=== PATIENT | male | born 1945 | race Caucasian/White ===

== ENCOUNTER 2019-11-19 13:42 | Outpatient (CLI) | payer MEDICARE, MEDICAID, SELFPAY ==
--- NOTE | 2019-11-19 13:53 | MR_ITS ---
WS: [id number] MRI HEAD WITH CONTRAST TECHNIQUE: Sagittal T1, T2 axial, T2 axial FLAIR, axial susceptibility weighted imaging, axial diffus ion weighted images, and coronal T2 images were obtained. Pre and post-T1 axial and post T1 coronal i mages. ADC and FSPGR images. CLINICAL INFORMATION: UNSTEADY GAIT; DIZZINESS COMPARISON: None. FINDINGS: No evidence of restricted diffusion to suggest acute ischemia. Ventricular system and basal cisterns are patent. Mild small vessel changes. Moderate parenchymal volume loss. Chronic lacunar infarct righ t cerebellum. Normal vascular flow voids at the skull base. No extra axial fluid collections. Ethmoid sinusitis. Slight right maxillary sinusitis. Mastoid air cells are well aerated. No hemosiderin on s usceptibly weighted images. No abnormal intracranial enhancement. Normal visualized dural venous sinuses. MR/MR head wo/w con [id number] IMPRESSION: 1. No evidence of restricted diffusion to suggest acute ischemia. 2. Mild small vessel changes with moderate parenchymal volume loss. 3. Chronic lacunar infarct right cerebellum. 4. Ethmoid and right maxillary sinusitis. 5. No hemosiderin on susceptibly weighted images. 6. No abnormal gadolinium enhancement.
== END 2019-11-19 13:43 | disposition home or self-care (01) ==
LOC: RADSHAW 13:49
PROVIDERS: Family Provider Family Medicine; Visit Provider Family Medicine
DX: I63.9 Cerebral infarction, unspecified (principal); R26.81 Unsteadiness on feet; R42 Dizziness and giddiness; J32.8 Other chronic sinusitis
CPT/HCPCS: 70553; A9579

== ENCOUNTER 2019-12-04 13:08 | Emergency (ER) | payer MEDICARE, MEDICAID, SELFPAY ==
[2019-12-04 13:39] VITALS: BP 110/64; PULSE 101; RESP 16; TEMP 36.7; O2SAT 97; BMI 30.5
--- NOTE | 2019-12-04 13:49 | ECG_ITS ---
Measurements Intervals [place] Rate: 90 P: RI: 0 QRS: -49 QRSD: 90 T: 69 QT: 344 QTc: 422 ATRIAL FIBRILLATION POSSIBLE RIGHT VENTRICULAR CONDUCTION DELAY [RSR (QR) IN V1/V2] LEFT ANTERIOR FASCICULAR BLOCK [QRS AXIS <= -45, QR IN I, RS IN II] Compared to ECG 07/09/2019 10:32:51 Left anterior fascicular block now present Left-axis deviation no longer present Electronically Signed On 12-04-2019 20:14:50 EFFICIENCY CLERK by Gee Salmon M.D. [email or web address]
--- NOTE | 2019-12-04 13:49 | XR_ITS ---
WS: [id number] PROCEDURE: XR chest 2V* [id number] CLINICAL INFORMATION: pain COMPARISON: None. FINDINGS: Heart: Normal cardiac silhouette. Aortic calcification. Lungs: Lungs are clear. No consolidation or pleural fluid. No acute pulmonary infiltrates. Bones: Hypertrophic changes thoracic spine. XR/XR chest 2V* [id number] IMPRESSION: No acute chest findings.
[2019-12-04 14:17] LABS: Basophils # 0.1 10^3/uL (0.0-0.1); Basophils % 0.7 %; Eosinophils # 0.3 10^3/uL (0.0-0.8); Eosinophils % 2.8 %; Hematocrit 41.1 % (42.0-52.0); Hemoglobin 13.4 g/dL (11.7-16.6); Lymphocytes # 2.2 10^3/uL (0.8-4.8); Lymphocytes % 20.4 %; Mean Corpuscular HGB Conc 32.6 g/dL (30.0-36.0); Mean Corpuscular Hemoglobin 28.8 pg (28.0-34.0); Mean Corpuscular Volume 88.4 fL (80-94); Mean Platelet Volume 9.8 fL (7.4-10.4); Monocytes # 1.3 10^3/uL (0.2-0.9); Monocytes % 11.7 %; Neutrophils # 6.9 10^3/uL (1.8-7.7); Nucleated Red Blood Cells % 0 %; Platelet Count 282 10^3/cmm (130-400); Red Blood Count 4.65 10^6/uL (4.1-5.3); White Blood Count 10.7 10^3/uL (4.0-10.0)
[2019-12-04 14:29] LABS: Add Urine Microscopic? NO
[2019-12-04 14:31] LABS: Bilirubin Urine 1+ (NEGATIVE); Blood Urine Neg (Negative); Glucose Urine UA Norm (Normal); Ketones Urine Negative (Negative); Leukocyte Esterase Urine Negative (Negative); Nitrate Urine Negative (Negative); Protein Urine Neg (Negative); Specific Gravity, Urine 1.015 (1.005-1.030); Urine Appearance Clear (CLEAR); Urine Color Dark Yellow (Yellow); Urobilinogen Urine 4 mg/dL (Negative); pH Urine 5 (5-7)
[2019-12-04 14:33] LABS: Alanine Aminotransferase 11 U/L (0-41); Albumin Level 4.1 g/dL (3.5-5.2); Alkaline Phosphatase 116 IU/L (40-130); Anion Gap 16.1 (5-19); Aspartate Amino Transferase 23 U/L (0-40); Blood Urea Nitrogen 28 mg/dL (8-23); Calcium 9.9 mg/dL (8.5-10.5); Carbon Dioxide 26 mmol/L (22-29); Chloride 96 mmol/L (98-107); Globulin 4.4 g/dL (1.3-4.6); Glucose 100 mg/dL (74-106); Potassium 4.1 mmol/L (3.5-5.1); Sodium 134 mmol/L (136-145); Total Bilirubin 2.6 mg/dL (0.15-1.2); Total Protein 8.5 g/dL (6.6-8.7)
[2019-12-04 14:34] LABS: Troponin(5th) Baseline 16 ng/mL (0-15)
--- NOTE | 2019-12-04 15:49 | ECG_ITS ---
Measurements Intervals [place] Rate: 83 P: ME: 0 QRS: -45 QRSD: 88 T: 63 QT: 371 QTc: 438 ATRIAL FIBRILLATION LEFT ANTERIOR FASCICULAR BLOCK [QRS AXIS <= -45, QR IN I, RS IN II] SEPTAL MYOCARDIAL INFARCTION , PROBABLY OLD [40+ ms Q WAVE IN V1/V2] Compared to ECG 07/09/2019 10:32:51 Left anterior fascicular block now present Myocardial infarct finding now present Left-axis deviation no longer present Electronically Signed On 12-04-2019 20:18:17 HEATING MECHANIC by Gee Salmon M.D. [id number]
[2019-12-04 17:05] LABS: Troponin 5 2HR 14.94 ng/mL (0-15)
[2019-12-04 17:11] LABS: Troponin 5 2HR Delta -1.06 ABS# (0-10)
--- NOTE | 2019-12-04 17:43 | ED_ITS ---
Entered by Sondra Bustillos, acting as scribe for Whit Doyle MD Dec 04, 2019 13:08 HPI - Dizziness General: Chief Complaint: Dizziness Stated Complaint: DIZZY Time Seen by Provider: 12/04/19 17:50 Source: patient and family Mode of arrival: ambulatory Limitations: no limitations History of Present Illness: HPI Narrative: 74 yo male presents with dizziness. pt states this started today. pt stated that he had a stroke 3 weeks ago and every day since he had it he felt drunk. no acute signs of stroke on MRI 2019. pt denies any other symptoms at this time. MD elicited complaint: dizziness Onset (ago): day(s) (today) Timing: gradual onset Severity: mild Description: lightheadedness Context: other Associated symptoms: Denies chest pain, chills, headache(s), nausea or vomiting Review of Systems Const: Denies: fever, chills, body aches or change in appetite Eyes: Denies: blurry vision or eye discomfort ENMT: Denies: throat pain or dental pain Card: Denies: chest pain Resp: Denies: shortness of breath GI: Denies: abdominal pain, nausea, vomiting or diarrhea : Denies: painful urination Musc: Denies: neck pain or back pain Skin/Breast: Denies: rash Neuro: Denies: headache Psych: Denies: depression Jaime/Lymph: Denies: easy bruising All/Imm: Denies: hives PFSH ED PFSH: Statuses (acute, chronic, etc) shown below reflect problem list status as previously entered and may not be historically accurate Social History Smoking and tobacco status: former smoker Physical Exam Const: COMMON NORMALS: no apparent distress and healthy appearing HENMT: COMMON NORMALS: normocephalic and head/scalp atraumatic HEAD & SCALP: normocephalic and atraumatic Eye: COMMON NORMALS: PERRL and EOMs intact bilaterally PUPIL: Yes PERRL Neck/C-Spine: COMMON NORMALS: full ROM and supple Chest: COMMONS NORMALS: inspection of chest normal and palpation of chest normal Resp: COMMON NORMALS: normal respiratory effort, no retractions, no use of accessory muscles and clear to auscultation bilaterally AUSCULTATION: clear to auscultation bilaterally Cardio: COMMON NORMALS: regular rate, regular rhythm and no murmurs RATE: regular rate RHYTHM: regular rhythm GI: COMMON NORMALS: normal to inspection, nondistended, normoactive bowel sounds, soft to palpation, non-tender and no masses PALPATION: Yes soft Extremity: COMMON NORMALS: normal to inspection and full ROM Psych: COMMON NORMALS: mental status grossly normal, thought process normal and cooperative THOUGHT PROCESS: normal thought process Skin: COMMON NORMALS: no rashes or lesions noted and no wounds GENERAL SKIN EXAM: no rashes or lesions noted Course Vital Signs: Vital signs: Vital Signs Temperature 98.0 F 12/04/19 13:39 Pulse Rate 74 12/04/19 20:32 Respiratory Rate 18 12/04/19 20:32 Blood Pressure 131/79 12/04/19 20:32 Pulse Oximetry 99 12/04/19 20:32 MDM - Dizziness MDM Narrative: Medical decision making narrative: Patient presents here with lightheadedness likely from dehydration. He feels much improved here after IV fluids. CT head shows no acute findings. Patient has no signs of a stroke here. He is able to ambulate without any problems. Patient is stable for discharge and return if worsening. Lab Data: Labs: Lab Results 12/04/19 12/04/19 12/04/19 Range/Units 14:10 14:10 14:10 WBC 10.7 H (4.0-10.0) 10^3/ uL RBC 4.65 (4.1-5.3) 10^6/u L Hgb 13.4 (11.7-16.6) g/dL Hct 41.1 L (42.0-52.0) % MCV 88.4 (80-94) fL MCH 28.8 (28.0-34.0) pg MCHC 32.6 (30.0-36.0) g/dL RDW 14.0 (12.1-15.1) % Plt Count 282 (130-400) 10^3/c mm MPV 9.8 (7.4-10.4) fL Neut % (Auto) 64.0 % Lymph % (Auto) 20.4 % [place] % (Auto) 11.7 % Eos % (Auto) 2.8 % Baso % (Auto) 0.7 % Neut # (Auto) 6.9 (1.8-7.7) 10^3/u L Lymph # (Auto) 2.2 (0.8-4.8) 10^3/u L [place] # (Auto) 1.3 H (0.2-0.9) 10^3/u L Eos # (Auto) 0.3 (0.0-0.8) 10^3/u L Baso # (Auto) 0.1 (0.0-0.1) 10^3/u L Nucleated RBC % (a uto) 0 % Nucleated RBCs # 0.0 /100WBC Sodium 134 L (136-145) mmol/L Potassium 4.1 (3.5-5.1) mmol/L Chloride 96 L (98-107) mmol/L Carbon Dioxide 26 (22-29) mmol/L Anion Gap 16.1 (5-19) BUN 28 H (8-23) mg/dL Creatinine 1.6 H (0.7-1.2) mg/dL Glucose 100 (74-106) mg/dL Calcium 9.9 (8.5-10.5) mg/dL Total Bilirubin 2.6 H (0.15-1.2) mg/dL AST 23 (0-40) U/L ALT 11 (0-41) U/L Alkaline Phosphata se 116 (40-130) IU/L Troponin T Baselin e 16 H (0-15) ng/mL Troponin T 120 Min [place] (0-15) ng/mL Delta Troponin T (0-10) ABS# Total Protein 8.5 (6.6-8.7) g/dL Albumin 4.1 (3.5-5.2) g/dL Globulin 4.4 (1.3-4.6) g/dL Urine Color (Yellow) Urine Appearance (CLEAR) Urine pH (5-7) Ur Specific Gravit y (1.005-1.030) Urine Protein (Negative) Urine Glucose (UA) (Normal) Urine Ketones (Negative) Urine Occult Blood (Negative) Urine Nitrate (Negative) Urine Bilirubin (NEGATIVE) Urine Urobilinogen (Negative) mg/dL Ur Leukocyte Genet ase (Negative) 12/04/19 12/04/19 Range/Units 14:11 16:40 WBC (4.0-10.0) 10^3/ uL RBC (4.1-5.3) 10^6/u L Hgb (11.7-16.6) g/dL Hct (42.0-52.0) % MCV (80-94) fL MCH (28.0-34.0) pg MCHC (30.0-36.0) g/dL RDW (12.1-15.1) % Plt Count (130-400) 10^3/c mm MPV (7.4-10.4) fL Neut % (Auto) % Lymph % (Auto) % [place] % (Auto) % Eos % (Auto) % Baso % (Auto) % Neut # (Auto) (1.8-7.7) 10^3/u L Lymph # (Auto) (0.8-4.8) 10^3/u L [place] # (Auto) (0.2-0.9) 10^3/u L Eos # (Auto) (0.0-0.8) 10^3/u L Baso # (Auto) (0.0-0.1) 10^3/u L Nucleated RBC % (a uto) % Nucleated RBCs # /100WBC Sodium (136-145) mmol/L Potassium (3.5-5.1) mmol/L Chloride (98-107) mmol/L Carbon Dioxide (22-29) mmol/L Anion Gap (5-19) BUN (8-23) mg/dL Creatinine (0.7-1.2) mg/dL Glucose (74-106) mg/dL Calcium (8.5-10.5) mg/dL Total Bilirubin (0.15-1.2) mg/dL AST (0-40) U/L ALT (0-41) U/L Alkaline Phosphata se (40-130) IU/L Troponin T Baselin e (0-15) ng/mL Troponin T 120 Min [place] 14.94 (0-15) ng/mL Delta Troponin T -1.06 L (0-10) ABS# Total Protein (6.6-8.7) g/dL Albumin (3.5-5.2) g/dL Globulin (1.3-4.6) g/dL Urine Color Dark yellow (Yellow) Urine Appearance Clear (CLEAR) Urine pH 5 (5-7) Ur Specific Gravit y 1.015 (1.005-1.030) Urine Protein Neg (Negative) Urine Glucose (UA) Norm (Normal) Urine Ketones Negative (Negative) Urine Occult Blood Neg (Negative) Urine Nitrate Negative (Negative) Urine Bilirubin 1+ H (NEGATIVE) Urine Urobilinogen 4 H (Negative) mg/dL Ur Leukocyte Genet ase Negative (Negative) Imaging Data^: CT Head: Radiologist's impression: Signed Patient: Tien Galan Unit #: [id number] : 1945 Age/Sex: 74 / M ADM Date: 12/04/19 Loc: ER Room/Bed: Attending Dr: Ordering Provider/Ordering MD: Whit Doyle MD Date of Service: 12/04/19 Procedure(s): CT head wo con* [id number] Accession Number(s): [id number] Report Number: [id number] PROCEDURE INFORMATION: Exam: CT Head Without Contrast Exam date and time: 12/04/2019 6:23 PM Age: 74 years old Clinical indication: Dizziness; Additional info: Dizzy TECHNIQUE: Imaging protocol: Computed tomography of the head without contrast. Total DLP: 725.17 mGy-cm Radiation optimization: All CT scans at this facility use at least one of these dose optimization techniques: automated exposure control; mA and/or kV adjustment per patient size (includes targeted exams where dose is matched to clinical indication); or iterative reconstruction. COMPARISON: [place] [id number] 04/08/2014 10:38 AM FINDINGS: Brain: There is mild cortical atrophy. Midline shift: There is no shift of midline structures. Ventricles: Normal. No ventriculomegaly. Bones/joints: Unremarkable. No acute fracture. Sinuses: There is fluid in the frontal sinuses, mucosal thickening and fluid in the bilateral maxillary sinuses and opacification of about half of the ethmoid air cells in keeping with sinusitis. Mastoid air cells: Visualized mastoid air cells are well aerated. Soft tissues: Unremarkable. CT/CT head wo con* [id number] IMPRESSION: Sinusitis. No acute intracranial finding. EKG Data^: EKG 1: EKG interpretation date: 12/04/19 EKG interpretation time: 19:17 Interpretation: afib hr [address] or t wave abnormalities qrs 96 [id number] Discharge Plan Discharge Patient Disposition: Home, Self-Care Clinical Impression: Dizziness Condition: Stable Discharge Orders: Discharge Order (Routine); Ordered 12/04/19 Ordered By: Whit Doyle Referrals: Damaso Bolivar MD [Family Provider] - 4-7 days Discharge Diet: Advance as tolerated Discharge Activity: Resume usual activity Patient Instructions: Dizziness (ED) Discharge Date/Time: 12/04/19 20:33 Coding Level of Care Code ED Trimming Cutter Machine for Chg Fwd Exam Problem Focused The documentation recorded by the Apollo selby Bridget Annette, accurately reflects the service I personally performed and the decisions made by Vivek agr Korby, MD Dec 04, 2019 13:08
--- NOTE | 2019-12-04 18:02 | CTR_ITS ---
PROCEDURE INFORMATION: Exam: CT Head Without Contrast Exam date and time: 12/04/2019 6:23 PM Age: 74 years old Clinical indication: Dizziness; Additional info: Dizzy TECHNIQUE: Imaging protocol: Computed tomography of the head without contrast. Total DLP: 725.17 mGy-cm Radiation optimization: All CT scans at this facility use at least one of these dose optimization techniques: automated exposure control; mA and/or kV adjustment per patient size (includes targeted exams where dose is matched to clinical indication); or iterative reconstruction. COMPARISON: [place] [id number] 04/08/2014 10:38 AM FINDINGS: Brain: There is mild cortical atrophy. Midline shift: There is no shift of midline structures. Ventricles: Normal. No ventriculomegaly. Bones/joints: Unremarkable. No acute fracture. Sinuses: There is fluid in the frontal sinuses, mucosal thickening and fluid in the bilateral maxillary sinuses and opacification of about half of the ethmoid air cells in keeping with sinusitis. Mastoid air cells: Visualized mastoid air cells are well aerated. Soft tissues: Unremarkable. CT/CT head wo con* [id number] IMPRESSION: Sinusitis. No acute intracranial finding. Radiation Dose CTDIVOL = (mGy): DLP = 725.17 (mGy-cm)
--- NOTE | 2019-12-04 18:02 | XR_ITS ---
WS: [id number] CHEST XRAY TECHNIQUE: Portable chest. CLINICAL INFORMATION: dizzy COMPARISON: December 04, 2019 FINDINGS: Heart: Normal cardiac silhouette. Aortic calcification. Lungs: Lungs are clear. No consolidation or pleural effusion. Mild chronic emphysematous changes. Bones: Hypertrophic changes thoracic spine. XR/XR chest 1V portable [id number] IMPRESSION: No acute chest findings
[2019-12-04] MEDS: sodium chloride 0.9% 1,000 ML 999 ML IV (18:31)
[2019-12-04 19:32] VITALS: BP 125/86; PULSE 67; RESP 18; O2SAT 98
--- NOTE | 2019-12-04 19:49 | ECG_ITS ---
Measurements Intervals [place] Rate: 70 P: SD: 0 QRS: -23 QRSD: 96 T: 28 QT: 404 QTc: 439 ATRIAL FIBRILLATION BORDERLINE LEFT AXIS DEVIATION [QRS AXIS < -20] ABNORMAL RHYTHM ECG Compared to ECG 12/04/2019 16:21:19 Left anterior fascicular block no longer present Myocardial infarct finding no longer present Electronically Signed On 12-05-2019 9:29:54 CONDENSER OPERATOR by Arnav Merlos M.D. [id number]
[2019-12-04 20:32] VITALS: BP 131/79; PULSE 74; RESP 18; O2SAT 99
[2019-12-04 20:46] LABS: Troponin 5 6HR 12.83 ng/L (0-15)
[2019-12-04 20:56] LABS: Troponin 5 6HR Delta -3.17 ng/L (0-12)
== END 2019-12-04 20:33 | disposition home or self-care (01) ==
PROVIDERS: Emergency Medicine; Registered Nurse; Emergency Provider Emergency Medicine; Family Provider Family Medicine
DX: R42 Dizziness and giddiness (principal); Z86.73 Personal history of transient ischemic attack (TIA), and cerebral infarction without residual deficits; Z87.891 Personal history of nicotine dependence
CPT/HCPCS: 36415; 70450; 71045; 71046; 80053; 81003; 84484; 85025; 93005; 96360; 99283; 99284; A9270; J7030

== ENCOUNTER 2019-12-12 14:11 | Outpatient (CLI) | payer MEDICARE, MEDICAID, SELFPAY ==
--- NOTE | 2019-12-12 14:14 | USCV_ITS ---
Angelia Tien Age: 74 Gender: M : 1945 Exam Date: 12/12/2019 14:54 Ordering Phys: Damaso Bolivar MD Technologist: Yashira Bland [place] [facility] [place]: CVA Risk Factors: Previous Vascular Surgery: Right Brachial BP: / Left Brachial BP: / Right Left Velocity (cm/s) Spectral Plaque Velocity (cm/s) Spectral Plaque Syst/Diast Broadening Syst/Diast Broadening 63.90/ 11.00 Prox CCA 63.40 / 21.80 63.90/ 22.10 Mid CCA 67.70 / 26.00 54.00/ 18.70 Distal CCA 42.90 / 14.50 31.30/ 10.00 Prox ICA 52.60 / 15.60 36.60/ 16.50 Mid ICA 26.70 / 14.00 44.30/ 20.70 Distal ICA 38.20 / 13.60 57.90 ECA 43.50 0.69 ICA/CCA 0.78 Antegrade Vertebral Antegrade 66.00/ 24.00 cm/s 28.40/ 13.80 cm/s Tri Subclavian Tri 51.40 69.30 FINDINGS Comparison: none available. No significant elevation of systolic or diastolic velocities. Mild bilateral scattered calcified plaque hroughout the common carotid arteries and extending through the bifurcation. CONCLUSIONS Bilateral ICA stenosis less than 50%. Mild carotid atherosclerosis. Dr. Liv Jarquin DO (Electronically Signed) Final Date: 12 December 2019 16:22 S
--- NOTE | 2019-12-12 14:14 | USCV_ITS ---
Tien Galan Age: 74 Gender: M : 1945 Exam Date: 12/12/2019 14:39 Ordering Phys: Damaso Bolivar MD Technologist: Inez Barnard Exam Location: [facility] – [place] Indication: CVA BP: / HR: 75 Rhythm: Technical Quality: Adequate MEASUREMENTS (Male / Female) Normal Values 2D ECHO LV Diastolic Diameter PLAX 4.7 cm 4.2 - 5.9 / 3.9 - 5.3 cm LV Systolic Diameter PLAX 3.2 cm IVS Diastolic Thickness 1.1 cm 0.6 - 1.0 / 0.6 - 0.9 cm IVS Systolic Thickness 1.8 cm LVPW Diastolic Thickness 1.2 cm 0.6 - 1.0 / 0.6 - 0.9 cm LVPW Systolic Thickness 1.3 cm LVOT Diameter 2.1 cm LV Ejection Fraction 2D Teich 59.9 % LV Ejection Fraction MOD 2C 37.5 % LV Ejection Fraction 2C AL 37.4 % LA Diameter 3.7 cm LA Width 3.7 cm LA Height 5.7 cm RA Width 4.3 cm RA Height 5.5 cm Aorta at Sinotubular Diameter 3.2 cm M-MODE LV Diastolic Diameter MM 4.7 cm 4.2 - 5.9 / 3.9 - 5.3 cm LV Systolic Diameter MM 3.6 cm LV Ejection Fraction MM Teich 47.0 % IVS Diastolic Thickness MM 1.3 cm 0.6 - 1.0 / 0.6 - 0.9 cm IVS Systolic Thickness MM 1.3 cm LVPW Diastolic Thickness MM 1.1 cm 0.6 - 1.0 / 0.6 - 0.9 cm LVPW Systolic Thickness MM 1.3 cm RV Diastolic Diameter MM 1.6 cm Aortic Annulus Diameter 4.1 cm LA Ao Ratio MM 0.9 MV E Point Septal Separation 0.8 cm DOPPLER AV Peak Velocity 105.0 cm/s LVOT Peak Velocity 84.0 cm/s AV Area Cont Eq vti 2.8 cm squared AV Area Cont Eq pk 2.7 cm squared MV Area PHT 5.0 cm squared MV E' Velocity 11.0 cm/s Mitral E to MV E' Ratio 9.2 Mitral E to LV E' Lateral Ratio 8.2 Mitral E to LV E' Septal Ratio 10.5 TR Peak Velocity 232.6 cm/s TR Peak Gradient 21.6 mmHg TR Mean Velocity 179.7 cm/s TR Mean Gradient 13.9 mmHg TR Velocity Time Integral 70.4 cm Right Atrial Pressure 3.0 mmHg Pulmonary Artery Systolic Pressu 24.6 mmHg PV Peak Velocity 43.0 cm/s RV Acceleration Time 0.2 s RV Ejection Time 0.3 s RV AcT/ET 0.5 FINDINGS Left Ventricle Normal left ventricular cavity size. Normal left ventricular systolic function. No regional wall motion abnormalities. Left ventricular ejection fraction is estimated at 55%. In the presence of atrial fibrillation diastolic function cannot be assessed accurately. Right Ventricle Moderately increased right ventricular size. Right Atrium Moderately increased right atrial size. Left Atrium Moderately increased left atrial size. Mitral Valve Structurally normal mitral valve without significant stenosis or prolapse. There is no mitral regurgitation. Aortic Valve Moderate aortic valve calcification. No aortic valve stenosis. Mild aortic valve regurgitation. Tricuspid Valve Thickened tricuspid valve. Moderate tricuspid valve regurgitation. Pulmonic Valve Structurally normal pulmonic valve without significant stenosis. There is no pulmonic regurgitation. Pericardium Normal pericardium without effusion. Aorta Normal ascending aorta dimension. CONCLUSIONS 1-Normal left ventricular cavity size. Normal left ventricular systolic function. No regional wall motion abnormalities. Left ventricular ejection fraction is estimated at 55%. In the presence of atrial fibrillation diastolic function cannot be assessed accurately. 2-Moderate aortic valve calcification. No aortic valve stenosis. Mild aortic valve regurgitation. 3-Thickened tricuspid valve. Moderate tricuspid valve regurgitation. 4-There is no pericardial effusion. 5-Pulmonary artery systolic pressure is within normal limits. 6-No significant change since the prior echocardiogram study of 04/22/2016. Gee Salmon MD (Electronically Signed) Final Date: 12 December 2019 19:44 S
== END 2019-12-12 14:12 | disposition home or self-care (01) ==
LOC: US 14:12
PROVIDERS: Family Provider Family Medicine; Visit Provider Family Medicine
DX: I63.9 Cerebral infarction, unspecified (principal); R42 Dizziness and giddiness; I07.9 Rheumatic tricuspid valve disease, unspecified; I07.1 Rheumatic tricuspid insufficiency; I70.0 Atherosclerosis of aorta; I35.1 Nonrheumatic aortic (valve) insufficiency; I65.23 Occlusion and stenosis of bilateral carotid arteries; I65.29 Occlusion and stenosis of unspecified carotid artery
CPT/HCPCS: 93306; 93880

== ENCOUNTER 2020-02-27 15:31 | Outpatient (CLI) | payer MEDICARE, MEDICAID, SELFPAY ==
--- NOTE | 2020-02-27 15:43 | US_ITS ---
WS: [id number] RENAL ULTRASOUND HISTORY: CKD COMPARISON: 06/19/2019 TECHNIQUE: 2-D and color Doppler imaging of the kidney submitted. Right kidney: 9.8 cm x 4.9 cm x 6.7 cm. Kidney is low normal size. No obstruction or mass. Left kidney: 9.3 cm x 5.1 cm x 4.9 cm. LEFT kidney is poorly visualized. There is a very slight thickening of the cortex over the mid to low er kidney. Slight bulging of the cortex measuring 2.6 x 1.6 x 2.4 cm. No hydronephrosis. Aorta: Normal. Urinary Bladder: Nondistended. US/US renal BI* [id number] IMPRESSION: 1. Mild renal atrophy. No obstruction. 2. Bulging of the LEFT renal cortex. Renal cell neoplasm is not excluded. Drom edary hump versus mass. For further evaluation three-phase renal mass CT can be performed.
== END 2020-02-27 15:32 | disposition home or self-care (01) ==
LOC: RAD 15:38
PROVIDERS: Family Provider Family Medicine; PCP Family Medicine; Visit Provider Registered Nurse
DX: N18.3 Chronic kidney disease, stage 3 (moderate) (principal); N26.1 Atrophy of kidney (terminal); N28.89 Other specified disorders of kidney and ureter
CPT/HCPCS: 76770

== ENCOUNTER 2020-03-12 11:00 | Outpatient (CLI) | payer MEDICARE, MEDICAID, SELFPAY ==
--- NOTE | 2020-03-12 11:31 | CT_ITS ---
WS: [id number] CT ABDOMEN PELVIS TECHNIQUE: Noncontrast CT of the abdomen and pelvis with coronal and sagittal reformatted images. CLINICAL INFORMATION: LEFT RENAL MASS, STAGE 3 KIDNEY DISEASE COMPARISON: CT April 19, 2017 and ultrasound February 27, 2020 DLP: 1105.[address] scans at [facility] use at least one of these dose optimization techniques: automat ed exposure control; mA and/or kV adjustment per patient size (includes targeted exams where dose is matched to clinical indication); or iterative reconstruction. FINDINGS: Prior postoperative changes cholecystectomy and appendectomy. Stable mild intrahepatic biliary ductal dilatation physiologic postcholecystectomy. Liver is otherwise normal in appearance. Normal noncontr ast spleen. Normal GE junction. Adrenal glands are normal. Bilateral renal cortical atrophy. No hydro nephrosis. Ureters are decompressed and normal in appearance. No obstructing renal or ureteral calcul i. Tiny exophytic lesion left anterior kidney measuring 7 mm unchanged since 2017. Otherwise no visualiz ed mass or lesion to correspond to the recent ultrasound findings. No evidence of small or large bowel obstruction. Normal colon. Ventral abdominal wall hernia repair. No evidence of recurrent hernia. Lung bases are well aerated. Aortic calcification. No periaortic or pelvic lymphadenopathy. Mild spon dylitic changes lumbar spine.Prominent slightly nodular prostate measuring 4.0 x 4.3 cm recommend cor relation PSA CT/CT abdomen pelvis wo con [id number] IMPRESSION: 1. No definite corresponding mass or lesion on this noncontrast examination le ft kidney to correspond to the ultrasound findings. 2. Tiny exophytic cortical lesion left anterior kidney likely represents a tin y cyst but too small characterize. This is unchanged since 2017. 3. No other significant changes from previous. 4. No hydronephrosis. Bilateral renal cortical atrophy. 5. Prior cholecystectomy. 6. Prior ventral abdominal wall hernia repair. 7. Prominent slightly nodular prostate measuring 4.0 x 4.3 cm recommend correl ation PSA
== END 2020-03-12 11:01 | disposition home or self-care (01) ==
LOC: RADWPI 11:04
PROVIDERS: Family Provider Family Medicine; PCP Family Medicine; Visit Provider Internal Medicine Nephrology
DX: N28.89 Other specified disorders of kidney and ureter (principal); N18.3 Chronic kidney disease, stage 3 (moderate); N28.9 Disorder of kidney and ureter, unspecified; N26.1 Atrophy of kidney (terminal); N40.2 Nodular prostate without lower urinary tract symptoms
CPT/HCPCS: 74176

== ENCOUNTER 2020-06-20 14:52 | Outpatient (CLI) | payer MEDICARE, MEDICAID, SELFPAY ==
--- NOTE | 2020-06-20 14:59 | MR_ITS ---
WS: [id number] EXAM: MR head wo/w con [id number] DATE OF EXAMINATION: 06/20/2020, 1538 hours COMPARISON: MRI of the brain with and without contrast from 11/19/2019 HISTORY: 75 years old with trigeminal neuralgia TECHNIQUE: Sagittal T1; axial T2, FLAIR, diffusion imaging, gradient echo imaging, ADC mapping. 17 mL of ProHanc e was used for the contrast portion of the examination. 3 plane postcontrast T1 sequence obtained. FINDINGS: Skull base is normal in appearance. Pituitary gland is normal in size. Brain stem, cerebellum and cer ebral hemispheres show normal development. Generalized changes of age-related atrophy are demonstrate d. Flow void is seen in the major vessels at the level of the skull base. Minimal T2 signal changes i n the periventricular white matter and a few areas of scattered white matter signal change within the deeper white matter in the supraventricular frontal lobes and posterior parietal lobes. No abnormal signal on diffusion imaging or ADC mapping. No roman artifact on gradient echo sequencing. No finding s of hemorrhage, hydrocephalus, mass, mass effect or abnormal extra-axial fluid collection is seen. C hronic sinusitis changes seen in the ethmoid sinuses. Definitely better than on a December 04, 2019 CT exam. No thin slice imaging through the area of the brainstem and the trigeminal nerve was obtained. Patien t needs to be recalled for additional multiplanar axial, sagittal and coronal steady-state free prece ssion imaging heavily T2-weighted to evaluate the trigeminal nerve and surrounding structure anatomy. On the coronal data set it appears that the superior right cerebellar artery may actually contact th e upper cranial portion of the right trigeminal nerve. Again this is poorly seen. Further imaging rec ommended for clarification of anatomy and positions of structures in relation to the trigeminal nerve . Postcontrast imaging shows no evidence of abnormal enhancement. MR/MR head wo/w con [id number] IMPRESSION: Changes of atrophy and some slight chronic small vessel white matter microangio pathic changes. No acute intracranial process. No thin slice imaging acquisition through the area of the brainstem and trigemi nal nerve obtained. Patient needs to be recalled for multiplanar axial, sagitta l and coronal steady-state free precession imaging heavily T2-weighted to evalu ate the trigeminal nerve and surrounding structures. Suspicion that on the prabhu nal sequencing the right superior cerebral artery is in direct contact with the cranial portion of the right trigeminal nerve.
== END 2020-06-20 14:53 | disposition home or self-care (01) ==
LOC: RADSHAW 14:57
PROVIDERS: PCP Family Medicine; Visit Provider Family Medicine
DX: G50.0 Trigeminal neuralgia (principal)
CPT/HCPCS: 70553; 82565; A9579

== ENCOUNTER 2020-07-16 13:02 | Outpatient (CLI) | payer MEDICARE, MEDICAID, SELFPAY ==
--- NOTE | 2020-07-16 | MR_ITS ---
WS: [id number] MRI BRAIN WITH AND WITHOUT CONTRAST HISTORY: TRIGEMINAL NEURALGIA COMPARISON: 06/20/2020, 11/19/2019 TECHNIQUE: Multiplanar imaging performed through the brain with Prohance 17 ml's IV. No evidence for an acute infarct. Mild chronic microvascular ischemic changes are stable in the periv entricular white matter. No interval infarct. There is no displacement of the trigeminal nerve or abn ormal enhancement. Patient describes left-sided facial pain for several months. The LEFT and RIGHT coon perior cerebellar arteries are closely associated with the trigeminal or but no displacement. Small f at planes are still evident. There is no enhancing mass. No susceptibility artifacts or prior lacunar infarcts. Ventricles and extra-axial spaces are normal. Clivus and pituitary gland are normal. Visualized posterior fossa and brainstem are also normal. 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 Postcontrast images are negative for masses or vascular malformations. Dural venous sinuses are normal. Paranasal sinuses: Small mucous retention cyst in the floor the maxillary sinus. Mild ethmoid air bessie l disease. Mastoid air cells: Normal. Calvarium and scalp: Normal. MR/MR head wo/w con [id number] IMPRESSION: 1. No intracranial mass. 2. No significant enhancement involving the facial nerves. No displacement by the cerebellar arteries. 3. Mild chronic microvascular ischemic disease is stable.
== END 2020-07-16 13:03 | disposition home or self-care (01) ==
LOC: RADSHAW 13:03
PROVIDERS: PCP Family Medicine; Visit Provider Family Medicine
DX: G50.0 Trigeminal neuralgia (principal); I67.82 Cerebral ischemia
CPT/HCPCS: 70553; A9579

== ENCOUNTER 2020-10-15 20:00 | Outpatient (CLI) | payer MEDICARE, MEDICAID, SELFPAY | END 2020-10-15 20:01 | disposition home or self-care (01) | LOC: SLEEP 10-16 09:39 | PROVIDERS: PCP Family Medicine; Visit Provider Family Medicine | DX: G47.10 Hypersomnia, unspecified (principal); G47.33 Obstructive sleep apnea (adult) (pediatric) | CPT/HCPCS: 95810 ==

== ENCOUNTER 2020-12-09 20:00 | Outpatient (CLI) | payer MEDICARE, MEDICAID, SELFPAY | END 2020-12-09 20:01 | disposition home or self-care (01) | LOC: SLEEP 12-10 09:42 | PROVIDERS: PCP Family Medicine; Visit Provider Family Medicine | DX: G47.33 Obstructive sleep apnea (adult) (pediatric) (principal) | CPT/HCPCS: 95811 ==

== ENCOUNTER → 2022-01-19 13:50 | Outpatient (BNVA) | payer MEDICARE, MEDICAID, SELFPAY | PROVIDERS: PCP Family Medicine; Referring Provider Family Medicine; Visit Provider Specialist | DX: R26.89 Other abnormalities of gait and mobility (principal); G25.0 Essential tremor; R42 Dizziness and giddiness; F41.9 Anxiety disorder, unspecified; I95.1 Orthostatic hypotension; G31.84 Mild cognitive impairment of uncertain or unknown etiology; F17.200 Nicotine dependence, unspecified, uncomplicated | CPT/HCPCS: 99204; 99205 ==

== ENCOUNTER 2022-01-29 06:00 | Outpatient (RCR) | payer MEDICARE, MEDICAID, SELFPAY | END 2022-02-27 23:59 | disposition home or self-care (01) | LOC: APT 06:00 | PROVIDERS: PCP Family Medicine; Referring Provider Specialist; Visit Provider Specialist | DX: R26.81 Unsteadiness on feet (principal) | CPT/HCPCS: 97110; 97112; 97163 ==

== ENCOUNTER 2022-04-29 16:30 | Outpatient (CLI) | payer MEDICARE, MEDICAID, SELFPAY ==
--- NOTE | 2022-04-29 | USR_ITS ---
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 COMPARISON: US Testicular [id number] 09/13/2019 3:43 PM FINDINGS: Right testicle: Status post right orchiectomy. No recurrent mass in the right hemiscrotum. Left testicle: Left testis measures 3.4 x 1.3 x 3.0 cm. The testis is normal in echotexture. No focal testicular lesion is demonstrated. Appropriate blood flow documented by Doppler. Epididymides: Left epididymis demonstrates a 1.1 cm septated cyst in the epididymal head. The body and tail of the left epididymis is heterogeneous without focal solid mass. Scrotum: There is a small hydrocele present. No varicocele noted on either side. US/US scrotum [id number] IMPRESSION: 1. Status post right orchiectomy. The empty right hemiscrotum is unremarkable. 2. Left testis is unremarkable. 3. There is a 1.1 cm septated cyst versus small spermatocele in the left epididymal head. 4. There is a small hydrocele present.
== END 2022-04-29 16:31 | disposition home or self-care (01) ==
LOC: RAD 16:31
PROVIDERS: PCP Family Medicine; Visit Provider Family Medicine
DX: N50.9 Disorder of male genital organs, unspecified (principal)
CPT/HCPCS: 76870

== ENCOUNTER → 2022-04-30 11:01 | Outpatient (BNVA) | payer MEDICARE, MEDICAID, SELFPAY | PROVIDERS: PCP Family Medicine; Visit Provider Urology | DX: N50.812 Left testicular pain (principal); Z85.47 Personal history of malignant neoplasm of testis; Z90.79 Acquired absence of other genital organ(s) | CPT/HCPCS: 81003; 99213 ==

== ENCOUNTER → 2022-11-18 11:59 | Outpatient (BNVA) | payer MEDICARE, MEDICAID, SELFPAY | PROVIDERS: PCP Family Medicine; Visit Provider Family Medicine | DX: E03.9 Hypothyroidism, unspecified (principal); E78.5 Hyperlipidemia, unspecified; Z13.220 Encounter for screening for lipoid disorders; Z51.81 Encounter for therapeutic drug level monitoring | CPT/HCPCS: 80053; 80061; 84439; 84443; 85025 ==

== ENCOUNTER → 2022-12-27 14:16 | Outpatient (BNVA) | payer MEDICARE, MEDICAID, SELFPAY | PROVIDERS: PCP Family Medicine; Visit Provider Internal Medicine Cardiovascular Disease | DX: I48.20 Chronic atrial fibrillation, unspecified (principal); Z79.01 Long term (current) use of anticoagulants; R07.9 Chest pain, unspecified; I10 Essential (primary) hypertension; Z87.891 Personal history of nicotine dependence | CPT/HCPCS: 93005; 99204 ==

== ENCOUNTER 2023-01-27 13:37 | Outpatient (CLI) | payer MEDICARE, MEDICAID, SELFPAY ==
--- NOTE | 2023-01-27 14:00 | USCV_ITS ---
Tien Galan Age: 77 Gender: M : 1945 Exam Date: 01/27/2023 14:34 Ordering Phys: Kristal Odom MD ([email or web address]) Technologist: Exam Location: [facility] – [place] Indication: sob chest pain BP: 130 / 82 HR: 75 Rhythm: Sinus Technical Quality: Adequate MEASUREMENTS (Male / Female) Normal Values 2D ECHO LV Diastolic Diameter PLAX 4.5 cm 4.2 - 5.9 / 3.9 - 5.3 cm LV Systolic Diameter PLAX 2.9 cm IVS Diastolic Thickness 1.3 cm 0.6 - 1.0 / 0.6 - 0.9 cm IVS Systolic Thickness 1.8 cm LVPW Diastolic Thickness 1.3 cm 0.6 - 1.0 / 0.6 - 0.9 cm LVPW Systolic Thickness 1.7 cm LVOT Diameter 2.0 cm LV Ejection Fraction 2D Teich 66.7 % LA Diameter 4.6 cm Aorta at Sinotubular Diameter 3.1 cm IVC Diameter 1.3 cm M-MODE Aortic Annulus Diameter 3.9 cm LA Ao Ratio MM 1.4 MV E Point Septal Separation 1.2 cm DOPPLER AV Peak Velocity 136.0 cm/s LVOT Peak Velocity 87.0 cm/s AV Area Cont Eq vti 1.9 cm squared AV Area Cont Eq pk 2.1 cm squared MV Area PHT 5.0 cm squared Mitral E to A Ratio 1.6 MV E' Velocity 88.0 cm/s Mitral E to LV E' Septal Ratio 11.9 TR Peak Velocity 253.3 cm/s TR Peak Gradient 25.7 mmHg TV Peak E Velocity 82.0 cm/s Right Atrial Pressure 3.0 mmHg Pulmonary Artery Systolic Pressu 28.7 mmHg RV Acceleration Time 0.1 s FINDINGS Left Ventricle Normal left ventricular size and systolic function, EF 55% (visual).no regional wall motion abnormalities. Right Ventricle Normal right ventricular size and systolic function. Right Atrium Moderately increased right atrial size. Left Atrium Moderately increased left atrial size. Mitral Valve Thickened mitral valve. Mild-moderate mitral valve regurgitation. Aortic Valve Thickened aortic valve. Tricuspid Valve Trace tricuspid valve regurgitation. Pulmonic Valve Pulmonic valve not well visualized. Pericardium No pericardial effusion. Aorta Normal aortic annulus size. IVC Normal IVC dimension with >50% respiratory change of the inferior vena cava. CONCLUSIONS Normal left ventricular size and systolic function, EF 55% (visual).no regional wall motion abnormalities. Moderate biatrial enlargementThickened mitral valve. Mild- moderate mitral valve regurgitation. Thickened aortic valve. Trace tricuspid valve regurgitation. Mild-moderate mitral valve regurgitation. There is no pericardial effusion. There are no intracardiac masses. Dr Kristal Odom MD FACC (Electronically Signed) Final Date: 07 February 2023 10:07 S
== END 2023-01-27 13:38 | disposition home or self-care (01) ==
LOC: RAD 13:43
PROVIDERS: PCP Family Medicine; Visit Provider Internal Medicine Cardiovascular Disease
DX: R06.02 Shortness of breath (principal); R07.9 Chest pain, unspecified; I08.3 Combined rheumatic disorders of mitral, aortic and tricuspid valves
CPT/HCPCS: 93306

== ENCOUNTER 2023-04-13 09:12 | Outpatient (CLI) | payer MEDICARE, MEDICAID, SELFPAY ==
--- NOTE | 2023-04-13 | ECG_ITS ---
[facility] Test Date: 2023-04-13 Pat Name: Tien Galan Department: Room: Gender: Male English As A Second Language Instructor: : 1945 Requested By: Kristal Odom Order Number: [id number] Brian MD: Glen Kumar M.D. Interpretive Statements NAME OF STUDY: LEXISCAN SESTAMIBI STRESS TEST INDICATION: [Chest Pain, ] Procedure: At the baseline, the blood pressure was 167/107 mmHg with a heart rate of 65bpm. The electrocardiogram showed atrial fibrillation, normal axis with normal ST and T's. The Lexiscan was infused over a period of 20 seconds. A total of 0.4 mg of Lexiscan was infused. The stress phase was continued for a total of 5 minutes. Heart rate was at the end of stress phase was 72 bpm and a blood pressure of 143/92 mmHg. The EKG at the peak infusion revealed atrial fibrillation with no significant ST-T wave changes. Sestamibi was injected 20 seconds after the Lexiscan infusion. Blood pressure at the end of recovery phase was 148/91 mmHg with a heart rate of 67bpm. Conclusion: 1. Normal EKG response to Lexiscan infusion 2. No Lexiscan induced chest pain or cardiac arrhythmia. 3. Normal blood pressure and heart rate response. 4. Sestamibi/sestamibi perfusion scan pending; see separate report. Electronically Signed On 04-22-2023 15:31:05 CDT by Glen Kumar M.D. [id number]
[2023-04-13 09:25] VITALS: BMI 33.4
--- NOTE | 2023-04-13 09:27 | NMCV_ITS ---
NM andrew perf SPECT r/s* [id number] Tien Galan Age: 78 Gender: M : 1945 Exam Date: 04/13/2023 10:14 Ordering Phys: Kristal Odom MD ([email or web address]) Technologist: KARYNA Gamble Exam [facility]: [facility] Indications: CHEST PAIN, HYPERTENSION, AFIB, ORTHOSTATIC HYPOTENSION STRESS TEST Please see separate stress test report in [facility] for full findings IMAGE PROTOCOL Rest/Stress 1 Lexiscan Day Radiopharmaceutical Dose (mCi) Administration Site Administered by Rest: Tc-99m 10.6 IV KARYNA Johns Sestamibi Stress:Tc-99m 32.6 IV KARYNA Johns Sestamibi Rest: 13-Apr-2023 60 Discovery 630 Stress: 13-Apr-2023 30 Discovery 630 0.4mg Lexiscan. Images obtained in supine and prone position. SPECT RESULTS Technical Quality: Excellent Raw Data Analysis: Normal Image Corrections: No attenuation or motion correction applied Summed Stress Score: 2 Summed Rest Score: 1 Summed Difference Score: 1 PERFUSION FINDINGS SPECT images demonstrate homogeneous tracer distribution throughout the myocardium. FUNCTIONAL RESULTS (calculated via Gated SPECT) Stress Image LV EF (%): 60 Stress EDV (mL):94 TID: 0.94 Stress ESV (mL):38 FUNCTIONAL FINDINGS: There is normal left ventricular systolic function. IMPRESSIONS 1. Normal myocardial perfusion imaging with no evidence of ischemia. 2. LV systolic function is normal. Glen Kumar MD (Electronically Signed) Final Date: 13 April 2023 12:49 S
[2023-04-13] MEDS: regadenoson 0.4 Mg/5 ml Syringe IVP (11:08)
[2023-04-13 11:22] VITALS: BP 148/91; PULSE 72
== END 2023-04-13 09:13 | disposition home or self-care (01) ==
LOC: CDL 09:12
PROVIDERS: PCP Family Medicine; Visit Provider Internal Medicine Cardiovascular Disease
DX: R07.9 Chest pain, unspecified (principal); I10 Essential (primary) hypertension; I48.91 Unspecified atrial fibrillation; Z79.01 Long term (current) use of anticoagulants; I95.1 Orthostatic hypotension
CPT/HCPCS: 36415; 78452; 93017; 96374; A9500; J2785

== ENCOUNTER → 2023-08-24 11:44 | Outpatient (BNVA) | payer MEDICARE, MEDICAID, SELFPAY | PROVIDERS: PCP Family Medicine; Visit Provider Family Medicine | DX: Z51.81 Encounter for therapeutic drug level monitoring (principal); I10 Essential (primary) hypertension; E03.9 Hypothyroidism, unspecified; R10.9 Unspecified abdominal pain; N40.0 Benign prostatic hyperplasia without lower urinary tract symptoms; R19.00 Intra-abdominal and pelvic swelling, mass and lump, unspecified site; I95.1 Orthostatic hypotension; I48.20 Chronic atrial fibrillation, unspecified; Z13.220 Encounter for screening for lipoid disorders | CPT/HCPCS: 80053; 80061; 84153; 84439; 84443; 85025; 86141 ==

== ENCOUNTER 2023-08-26 10:26 | Outpatient (CLI) | payer MEDICARE, MEDICAID, SELFPAY ==
[2023-08-26] MEDS: iohexol 350 mg/mL 500 mL Btl (per mL) PO (11:17)
[2023-08-26] MEDS: iohexol 350 mg/mL 500 mL Btl (per mL) IV (11:57)
--- NOTE | 2023-08-26 12:00 | CT_ITS ---
WS: [id number] CT ABDOMEN AND PELVIS WITH CONTRAST HISTORY: LUQ abd mass, weight loss TECHNIQUE: Imaging performed of the abdomen and pelvis with IV contrast. Single phase imaging of the abdomen. Coronal and sagittal reformats are submitted. All CT scans at [facility] use at [place] one of these dose optimization techniques: automated exposure control; mA and/or kV adjustment per patient size (includes targeted exams where dose is matched to clinical indication); or iterative re construction. IV CONTRAST: Omnipaque 350; 100 mL IV. Oral contrast: Yes. DLP: 568.92 mGy.cm COMPARISON: 03/12/2020 Lower thorax: Lung bases are clear. Mild cardiomegaly. Small hiatal hernia. Liver/biliary system: Normal size liver. There is mild intrahepatic duct dilatation which is probably on the basis of a prior cholecystectomy. Mild focal fatty sparing along the falciform ligament. Gallbladder: Status post cholecystectomy. Pancreas: Normal size pancreas and pancreatic duct. No adjacent inflammation. Spleen: Normal size spleen. No mass or infarct. Adrenal glands: Normal. Right kidney: Mild diffuse cortical thinning. No mass or obstruction. Left kidney: Mild diffuse cortical thinning. There is a cyst from the superior kidney measuring 9 mm. Focal scarring cortex of the mid kidney. Aorta: Mild atherosclerosis with no aneurysm. Lymphadenopathy: None. Free fluid: None. GI tract: Normal stomach. No small bowel obstruction. Mild diffuse constipation. Prior appendectomy. Mild distal colonic diverticulosis without acute diverticulitis. Abdominal wall: Unremarkable abdominal wall. No hernia. Pelvis: No free fluid or adenopathy within the pelvis. Mild prostate gland encroachment into the blad sofía. Bones: Unremarkable. IMPRESSION: 1. Known LEFT upper abdominal mass identified. 2. Prior cholecystectomy. Mild central bile duct dilatation is probably related to cholecystectomy. 3. Mild constipation. 4. No adenopathy or ascites. 5. Mild renal atrophy and cortical thinning.
== END 2023-08-26 10:27 | disposition home or self-care (01) ==
PROVIDERS: PCP Family Medicine; Visit Provider Family Medicine
DX: R19.02 Left upper quadrant abdominal swelling, mass and lump (principal); R63.4 Abnormal weight loss; Z90.49 Acquired absence of other specified parts of digestive tract; K59.00 Constipation, unspecified
CPT/HCPCS: 74177; Q9967

== ENCOUNTER 2024-06-27 20:00 | Outpatient (CLI) | payer MEDICARE, MEDICAID, SELFPAY | END 2024-06-27 20:01 | disposition home or self-care (01) | LOC: SLEEP 21:03 | PROVIDERS: PCP Family Medicine; Visit Provider Family Medicine | DX: G47.10 Hypersomnia, unspecified (principal); R06.83 Snoring; R53.83 Other fatigue | CPT/HCPCS: 95810 ==

== ENCOUNTER → 2024-10-22 11:17 | Outpatient (BNVA) | payer MEDICARE, MEDICAID, SELFPAY | PROVIDERS: PCP Family Medicine; Visit Provider Family Medicine | DX: E03.9 Hypothyroidism, unspecified (principal); Z51.81 Encounter for therapeutic drug level monitoring; E11.9 Type 2 diabetes mellitus without complications; E55.9 Vitamin D deficiency, unspecified; R35.0 Frequency of micturition | CPT/HCPCS: 80053; 82306; 83036; 84153; 84439; 84443; 85025 ==

== ENCOUNTER → 2024-10-29 11:53 | Outpatient (BNVA) | payer MEDICARE, MEDICAID, SELFPAY | PROVIDERS: PCP Family Medicine; Referring Provider Family Medicine; Visit Provider Internal Medicine Cardiovascular Disease | DX: R07.9 Chest pain, unspecified (principal); I44.4 Left anterior fascicular block; I48.0 Paroxysmal atrial fibrillation | CPT/HCPCS: 93005; 99214 ==

== ENCOUNTER 2024-11-02 13:15 | Outpatient (CLI) | payer MEDICARE, MEDICAID, SELFPAY ==
--- NOTE | 2024-11-02 13:15 | US_ITS ---
WS: [id number] TESTICULAR ULTRASOUND HISTORY: Left testicular nodule/pain COMPARISON: 04/29/2022, 09/13/2019 TECHNIQUE: Real-time and color Doppler imaging or utilized to perform a testicular ultrasound. RIGHT orchiectomy. No abnormality in the RIGHT scrotal sac. Left testicle: 3.7 cm x 2.6 cm x 1.9 cm. Normal size testicle. Mild coarse echotexture. No mass. No increased vascularity. Mildly thickened heterogeneous mid to distal epididymis. Mixed echogenicity with only slight increase d vascularity. Epididymal head is normal. No significant hydrocele. No scrotal wall thickening. US/US scrotum [id number] IMPRESSION: 1. Status post RIGHT orchiectomy. 2. Heterogeneous mid to distal LEFT epididymis. Similar to the prior study. No increased vascularity. Heterogeneity may be due to prior episodes of epididymi tis. Similar to prior studies. No acute epididymitis. Area of nodularity appear s to correlate with the distal epididymis.
== END 2024-11-02 13:21 | disposition home or self-care (01) ==
PROVIDERS: PCP Family Medicine; Visit Provider Family Medicine
DX: N50.89 Other specified disorders of the male genital organs (principal); N50.812 Left testicular pain; Z90.79 Acquired absence of other genital organ(s)
CPT/HCPCS: 76870

== ENCOUNTER → 2024-11-27 13:27 | Outpatient (BNVA) | payer MEDICARE, MEDICAID, SELFPAY | PROVIDERS: PCP Family Medicine; Visit Provider Podiatrist Foot & Ankle Surgery | DX: M79.671 Pain in right foot (principal); M20.41 Other hammer toe(s) (acquired), right foot; M25.871 Other specified joint disorders, right ankle and foot | CPT/HCPCS: 73630; 99203 ==

== ENCOUNTER 2025-01-07 11:56 | Outpatient (CLI) | payer MEDICARE, MEDICAID, SELFPAY ==
--- NOTE | 2025-01-07 12:00 | USCV_ITS ---
Tien Galan Age: 79 Gender: M : 1945 Exam Date: 01/07/2025 12:05 Ordering Phys: Kristal Odom MD ([email or web address]) Technologist: Exam Location: [facility] [place] Indication: cp sob BP: 130 / 80 HR: 75 Rhythm: Sinus Technical Quality: Adequate MEASUREMENTS (Male / Female) Normal Values 2D ECHO LV Diastolic Diameter PLAX 4.4 cm 4.2 - 5.9 / 3.9 - 5.3 cm IVS Diastolic Thickness 1.5 cm 0.6 - 1.0 / 0.6 - 0.9 cm IVS Systolic Thickness 1.5 cm LVPW Diastolic Thickness 1.3 cm 0.6 - 1.0 / 0.6 - 0.9 cm LVPW Systolic Thickness 1.7 cm LVOT Diameter 2.0 cm LV Ejection Fraction 2D Teich 56.8 % LV Ejection Fraction MOD 4C 51.9 % LV Ejection Fraction MOD 2C 63.3 % LV Ejection Fraction 2C AL 65.1 % LA Diameter 4.4 cm RA Systolic Volume 4C AL 59.3 ml RA Systolic Volume 4C MOD 57.6 ml LA Sys Volume AL 142.6 cm cubed LA Sys Volume Index AL 73.2 cm cubed/m squared Aorta at Sinotubular Diameter 3.0 cm IVC Diameter 1.9 cm M-MODE LA Ao Ratio MM 1.1 AV Cusp Separation MM 1.5 cm DOPPLER AV Peak Velocity 139.0 cm/s LVOT Peak Velocity 72.0 cm/s AV Area Cont Eq vti 1.9 cm squared AV Area Cont Eq pk 1.7 cm squared MV Peak Velocity 122.0 cm/s MV Area PHT 2.4 cm squared Mitral E to A Ratio 3.3 TV Peak Velocity 320.5 cm/s TR Peak Velocity 350.0 cm/s TR Peak Gradient 49.0 mmHg TV Peak E Velocity 113.0 cm/s PV Peak Velocity 82.0 cm/s FINDINGS Left Ventricle Normal left ventricular size, systolic function and wall thickness, with no regional wall motion abnormalities. Left ventricular ejection fraction is estimated at 60 %. Grade III/IV diastolic dysfunction (restrictive filling pattern), severely elevated filling pressures. Right Ventricle The right ventricle is normal in size and function. Right Atrium The right atrium is normal in size. Left Atrium Moderately increased left atrial size. Mitral Valve Moderately thickened mitral valve. Moderate mitral valve regurgitation. Aortic Valve Mild aortic valve calcification. No aortic valve stenosis. Traceaortic valve regurgitation. Tricuspid Valve Mild to moderate tricuspid valve regurgitation. Pulmonic Valve Structurally normal pulmonic valve without significant stenosis. There is no pulmonic regurgitation. Pericardium Normal pericardium without effusion. Aorta Normal ascending aorta dimension. IVC The inferior vena cava appears normal. CONCLUSIONS Normal left ventricular size, systolic function and wall thickness, with no regional wall motion abnormalities. Left ventricular ejection fraction is estimated at 60 %. Grade III/IV diastolic dysfunction (restrictive filling pattern), severely elevated filling pressures. Moderately increased left atrial size. Moderately thickened mitral valve. Moderate mitral valve regurgitation. Mild to moderate tricuspid valve regurgitation. There is no pericardial effusion. Right atrial pressure is around 5 mm of mercury. Gee Salmon MD (Electronically Signed) Final Date: 16 January 2025 17:48 S
== END 2025-01-07 11:57 | disposition home or self-care (01) ==
LOC: RAD 11:57
PROVIDERS: PCP Family Medicine; Visit Provider Internal Medicine Cardiovascular Disease
DX: I08.1 Rheumatic disorders of both mitral and tricuspid valves (principal); R06.09 Other forms of dyspnea
CPT/HCPCS: 93306

== ENCOUNTER → 2025-02-27 10:28 | Outpatient (BNVA) | payer MEDICARE, MEDICAID, SELFPAY | PROVIDERS: PCP Family Medicine; Visit Provider Podiatrist Foot & Ankle Surgery | DX: M79.671 Pain in right foot (principal); M20.41 Other hammer toe(s) (acquired), right foot; M25.871 Other specified joint disorders, right ankle and foot; M21.621 Bunionette of right foot | CPT/HCPCS: 99213 ==

== ENCOUNTER 2025-03-12 13:24 | Outpatient (CLI) | payer MEDICARE, MEDICAID, SELFPAY ==
--- NOTE | 2025-03-12 13:27 | CTR_ITS ---
PROCEDURE INFORMATION: Exam: CT Temporal Bones Without Contrast. Exam date and time: 03/12/2025 1:38 PM Age: 80 years old Clinical indication: Hearing loss; Additional info: Mixed conductive and sensorineural hearing loss, left ear TECHNIQUE: Imaging protocol: Computed tomography of the temporal bones without contrast. Radiation optimization: All CT scans at this facility use at least one of these dose optimization techniques: automated exposure control; mA and/or kV adjustment per patient size (includes targeted exams where dose is matched to clinical indication); or iterative reconstruction. COMPARISON: MR head wo/w con [id number] 07/16/2020 1:32 PM RADIATION DOSE METRICS: Total DLP (mGy-cm): 337.08 FINDINGS: Right inner ear: Normal. Right ossicles and middle ear: Normal. The middle ear ossicles are intact. Right external auditory canal: Normal. Right facial nerve canal: Normal. Right jugular foramen: No jugular dehiscence. Right carotid canal: No aberrant carotid canal. Right mastoid air cells: Normal. No mastoid effusions. Left inner ear: The left superior semicircular canal is dehiscent for example on series 12, image 37. Left ossicles and middle ear: The left tympanic membrane is intact. The left ossicular chain is intact. The left middle ear cavity is clear. Left external auditory canal: There is minimal debris in the left external auditory canal. Left facial nerve canal: Normal. Left jugular foramen: No jugular dehiscence. Left carotid canal: No aberrant carotid canal. Left mastoid air cells: There is a small left mastoid effusion. Paranasal sinuses: Scattered paranasal sinus mucosal thickening, without air-fluid level present. Soft tissues: Unremarkable. CT/CT temporal bone wo con* [id number] IMPRESSION: There is a small left mastoid effusion suggesting possible mastoiditis. The left superior semicircular canal is dehiscent. The bony temporal anatomy is otherwise normal
== END 2025-03-12 13:25 | disposition home or self-care (01) ==
LOC: RAD 13:25
PROVIDERS: PCP Family Medicine; Visit Provider Specialist
DX: H90.A32 Mixed conductive and sensorineural hearing loss, unilateral, left ear with restricted hearing on the contralateral side (principal); H74.8X2 Other specified disorders of left middle ear and mastoid; H83.8X2 Other specified diseases of left inner ear; J34.89 Other specified disorders of nose and nasal sinuses
CPT/HCPCS: 70480

== ENCOUNTER → 2025-03-26 10:54 | Outpatient (BNVA) | payer MEDICARE, MEDICAID, SELFPAY | PROVIDERS: PCP Family Medicine; Visit Provider Podiatrist Foot & Ankle Surgery | DX: M79.671 Pain in right foot (principal); M20.41 Other hammer toe(s) (acquired), right foot; M25.871 Other specified joint disorders, right ankle and foot; M21.629 Bunionette of unspecified foot; M21.621 Bunionette of right foot | CPT/HCPCS: 99213 ==

== ENCOUNTER → 2025-05-06 11:10 | Outpatient (BNVA) | payer MEDICARE, MEDICAID, SELFPAY | PROVIDERS: PCP Family Medicine; Visit Provider Internal Medicine Cardiovascular Disease | DX: R53.1 Weakness (principal); I48.20 Chronic atrial fibrillation, unspecified; Z79.01 Long term (current) use of anticoagulants; I10 Essential (primary) hypertension; R07.89 Other chest pain; Z86.73 Personal history of transient ischemic attack (TIA), and cerebral infarction without residual deficits; Z87.891 Personal history of nicotine dependence; R07.9 Chest pain, unspecified; I48.91 Unspecified atrial fibrillation; R42 Dizziness and giddiness; R06.02 Shortness of breath; I25.118 Atherosclerotic heart disease of native coronary artery with other forms of angina pectoris | CPT/HCPCS: 93005; 99215 ==

== ENCOUNTER 2025-05-14 13:17 | Outpatient (CLI) | payer MEDICARE, MEDICAID, SELFPAY ==
[2025-05-14 14:28] LABS: Hematocrit 37.0 % (37-53); Hemoglobin 12.20 g/dL (11.27-16.99); Mean Corpuscular HGB Conc 33.0 g/dL (30-55); Mean Corpuscular Hemoglobin 29.4 pg (27-33); Mean Corpuscular Volume 89.2 fl (82-101); Nucleated Red Blood Cells % 0 %; Platelet Count 195 10^3/cmm (157-399); Red Blood Count 4.15 10^6/uL (3.85-5.65); White Blood Count 6.35 10^3/uL (3.29-11.43)
[2025-05-14 14:42] LABS: INR 1.05 (0.8-1.2); Prothrombin Time 14.40 SECONDS (12.1-14.9)
[2025-05-14 14:52] LABS: Anion Gap 16.4 (5-19); Blood Urea Nitrogen 20 mg/dL (8-23); Calcium 9.0 mg/dL (8.5-10.5); Carbon Dioxide 21 mmol/L (22-29); Chloride 105 mmol/L (98-107); Glucose 113 mg/dL (65-115); Osmolality Calculated 289 mOsm/kg (285-295); Potassium 4.4 mmol/L (3.5-5.1); Sodium 138 mmol/L (136-145)
== END 2025-05-14 13:18 | disposition home or self-care (01) ==
LOC: LAB 13:20
PROVIDERS: PCP Family Medicine; Visit Provider Internal Medicine Cardiovascular Disease
DX: Z79.01 Long term (current) use of anticoagulants (principal); I25.118 Atherosclerotic heart disease of native coronary artery with other forms of angina pectoris; R06.02 Shortness of breath; I48.91 Unspecified atrial fibrillation
CPT/HCPCS: 36415; 80048; 85025; 85610; 86850; 86900

== ENCOUNTER 2025-06-13 09:35 | Outpatient (CLI) | payer MEDICARE, MEDICAID, SELFPAY ==
--- NOTE | 2025-06-13 09:56 | NMCV_ITS ---
NM andrew perf SPECT r/s* [id number] Tien Galan Age: 80 Gender: M : 1945 Exam Date: 06/13/2025 10:33 Ordering Phys: Kristal Odom MD ([email or web address]) Technologist: KARYNA Sears Exam Location: [facility] Indications: CP STRESS TEST Please [facility] IMAGE PROTOCOL Rest/Stress 1 Lexiscan Day Radiopharmaceutical Dose (mCi) Administration Site Administered by Rest: Tc-99m 10.5 IV KARYNA Sears Sestamibi Stress:Tc-99m 32.4 IV Tameka Arboleda, [employer] TECHNICIAN Sestamibi Rest: 13-Jun-2025 60 Discovery 630 Stress: 13-Jun-2025 30 Discovery 630 0.4mg Lexiscan. Supine position only as patient was unable to lay prone. SPECT RESULTS Technical Quality: Good Raw Data Analysis: Normal Image Corrections: No attenuation or motion correction applied Summed Stress Score: 0 Summed Rest Score: 0 Summed Difference Score: 0 PERFUSION FINDINGS SPECT images demonstrate homogeneous tracer distribution throughout the myocardium. FUNCTIONAL RESULTS (calculated via Gated SPECT) Stress Image LV EF (%): 66 Stress EDV (mL):105 TID: 0.95 Stress ESV (mL):36 FUNCTIONAL FINDINGS: There is normal left ventricular systolic function. IMPRESSIONS 1. Normal myocardial perfusion imaging with no evidence of ischemia. 2. LV systolic function is normal Glen Kumar MD (Electronically Signed) Final Date: 13 June 2025 12:03 S
--- NOTE | 2025-06-13 09:56 | ECG_ITS ---
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 Interpretive Statements LEXISCAN: Procedure: At the baseline, the blood pressure was 139/90 mmHg with a heart rate of 68 bpm. The electrocardiogram showed normal atrial fibrillation, normal axis with normal ST and T's. The Lexiscan was infused over a period of 20 seconds. A total of 0.4 mg of Lexiscan was infused. The stress phase was continued for a total of 5 minutes. Heart rate was at the end of stress phase was 75 bpm and a blood pressure of 115/65 mmHg. The EKG at the peak infusion revealed atrial fibrillation with no significant ST-T wave changes. Sestamibi was injected 20 seconds after the Lexiscan infusion. Blood pressure at the end of recovery phase was 126/71 mmHg with a heart rate of 76 bpm. Conclusion: 1. Normal EKG response to Lexiscan infusion 2. No Lexiscan induced chest pain or cardiac arrhythmia. 3. Normal blood pressure and heart rate response. 4. Sestamibi/sestamibi perfusion scan pending; see separate report. Electronically Signed On 06-16-2025 22:49:27 CDT by Glen Kumar M.D. [id number] [id number]
[2025-06-13 09:57] VITALS: BMI 30.5
[2025-06-13 11:16] VITALS: BP 115/61; PULSE 75
== END 2025-06-13 09:36 | disposition home or self-care (01) ==
LOC: CDL 09:37
PROVIDERS: PCP Family Medicine; Visit Provider Internal Medicine Cardiovascular Disease
DX: R07.9 Chest pain, unspecified (principal); I48.91 Unspecified atrial fibrillation
CPT/HCPCS: 36415; 78452; 93017; 96374; A9500; J2785

== ENCOUNTER → 2025-07-08 11:17 | Outpatient (BNVA) | payer MEDICARE, MEDICAID, SELFPAY | PROVIDERS: PCP Family Medicine; Visit Provider Podiatrist Foot & Ankle Surgery | DX: M20.41 Other hammer toe(s) (acquired), right foot (principal); M25.871 Other specified joint disorders, right ankle and foot; M21.629 Bunionette of unspecified foot | CPT/HCPCS: 99213 ==

== ENCOUNTER → 2025-08-22 10:38 | Outpatient (BNVA) | payer MEDICARE, MEDICAID, SELFPAY | PROVIDERS: PCP Family Medicine; Visit Provider Internal Medicine Cardiovascular Disease | DX: I48.20 Chronic atrial fibrillation, unspecified (principal); Z79.01 Long term (current) use of anticoagulants; I10 Essential (primary) hypertension; R07.9 Chest pain, unspecified; R53.1 Weakness; Z87.891 Personal history of nicotine dependence; Z86.73 Personal history of transient ischemic attack (TIA), and cerebral infarction without residual deficits | CPT/HCPCS: 99214 ==